=== PATIENT | female | born 1970 | race Caucasian/White ===

== ENCOUNTER 2017-04-06 23:58 | Observation (INO) | payer SELFPAY ==
--- NOTE | ~2017-04-06 | DS ---
Discharge Summary [id number] [place]. [address] NAME: NAGI SEPULVEDA : 72 STATUS : DIS Howard PAT#: [id number] AGE: 47 ADM/REG DATE : 04/07/17 MR#: [id number] REPORT SERV DATE: 04/10/17 DICTATED BY: LISSA TREJO DATE: 04/09/17 REPORT STATUS : Draft TRANSCRIBED BY: MODL DATE: 04/09/17 ADMISSION DATE: 04/07/2017 DISCHARGE DATE: 04/09/2017 DISCHARGE DIAGNOSES: 1. Urinary tract infection. 2. Hypertension. 3. Chronic pancreatitis. 4. Biliary dyskinesia. The patient was followed by Dr. Muir for outpatient cholecystectomy. 5. Fatty liver with elevated LFTs. CONSULTANTS: Dr. Muir. HISTORY OF PRESENT ILLNESS: This is a 47-year-old female patient, who came to the hospital with abdominal pain. Please see dictated H and P. HOSPITAL COURSE: She was admitted to the hospital. Evaluation with CT of the abdomen and pelvis revealed a markedly distended gallbladder with slight elevation of the LFTs. The patient does have history of alcoholism, but it is discontinued. She did have history of fatty liver disease. She had an evaluation with HIDA scan, which showed a dysfunctional gallbladder. So, the patient was referred to Dr. Muir and evaluated by him, and recommended outpatient evaluation and treatment. Meanwhile, she was put on proton pump inhibitor and Carafate, and her symptoms are slightly improved. Overall, had a stable hospitalization. She is ambulating and she could do the outpatient evaluation and therapy. The patient is tolerating diet. So, the patient will be discharged to home in stable condition with a very close followup with Dr. Muir. DISCHARGE MEDICATIONS: Prilosec 20 mg twice a day, Carafate 1 g four times a day, hydrocodone is given for intermittent pain relief, and Bactrim DS twice a day for one more day. EKL/MODL Lissa Trejo M.D. / [id number] CC: Lissa Trejo M.D.
--- NOTE | ~2017-04-06 | HP ---
History And Physical [address] [place]. [address] NAME: NAGI SEPULVEDA : 72 STATUS : ADM Howard PAT#: [id number] AGE: 47 ADM/REG DATE : 04/07/17 MR#: [id number] REPORT SERV DATE: 04/07/17 DICTATED BY: CONRADO BARCLAY DATE: 04/07/17 REPORT STATUS : Draft TRANSCRIBED BY: MODL DATE: 04/07/17 DATE OF ADMISSION: 04/07/2017 CHIEF COMPLAINT: A 47-year-old female with no primary care physician, presenting with abdominal pain and urinary symptoms. HISTORY OF PRESENT ILLNESS: The patient's history was obtained through an interview with the patient, coupled with review of [facility] medical records. For about two weeks, the patient has been having intermittent abdominal pain, but it has been constant and more severe over the last three days. She describes a mid abdominal pain in the epigastric region that radiates to the back wrapping around both sides. It has a sharp quality, 9/10 severity. She states that the pain reminds her of past exacerbations of pancreatitis. But she has also had increasing urinary frequency, urinary urgency, dysuria, and associated nausea and vomiting. She has suffered diaphoresis, but no overt fevers or chills. She has had lightheadedness. No shortness of breath. No cough. No chest pain. REVIEW OF SYSTEMS: Otherwise, a 14-point review of systems was obtained and was negative. PAST MEDICAL HISTORY: 1. Chronic pancreatitis. 2. Alcoholism with alcohol withdrawal seizures. 3. Obstructive sleep apnea, but intolerant of CPAP. 4. Peptic ulcer disease. 5. Depression and anxiety. 6. Urinary tract infections. 7. Hypertension. 8. Gastroesophageal reflux disorder. 9. Ovarian cyst. 10.Leukopenia and thrombocytopenia. 11.Fatty liver disease. PAST SURGICAL HISTORY: 1. Bladder surgery when the patient was 5 years old. 2. Tubal ligation. 3. Right thumb surgery. ALLERGIES: TO MORPHINE AND HEPARIN. SOCIAL HISTORY: No tobacco abuse. The patient states that she only drinks socially now, but History And Physical [address] [address] NAME: NAGI SEPULVEDA : 72 STATUS : ADM Howard PAT#: [id number] AGE: 47 ADM/REG DATE : 04/07/17 MR#: [id number] REPORT SERV DATE: 04/07/17 DICTATED BY: CONRADO BARCLAY DATE: 04/07/17 REPORT STATUS : Draft TRANSCRIBED BY: GABBY DATE: 04/07/17 has been a heavy vodka drinker. She occasionally smokes marijuana. She lives in [place], [place], with her boyfriend. She has three children, all in their 20s. MEDICATIONS: Include Norvasc 5 mg p.o. b.i.d. PHYSICAL EXAMINATION: VITAL SIGNS: Temperature 98.6, pulse 98, blood pressure 159/102, respiratory rate 16, and O2 saturation 98% on room air. GENERAL: A pleasant, cooperative female, in no significant distress. HEENT: Pupils equal, round, and reactive to light. No conjunctival pallor. No scleral icterus. Nares are patent. Oropharynx is clear of obstruction. Moist mucous membranes. NECK: Trachea midline. No thyromegaly. LYMPH: No cervical lymphadenopathy. No supraclavicular lymphadenopathy. RESPIRATORY: Clear to auscultation at bases. No wheezes, rales, or rhonchi. Normal respiratory effort. CARDIOVASCULAR: Regular rate and rhythm. No murmurs, rubs, or gallops. No extremity edema is appreciated. ABDOMEN: Significant epigastric pain, but no guarding, no rebound. No significant suprapubic abdominal pain. No flank pain. The patient has no hepatosplenomegaly by exam. DERMATOLOGIC: Warm and dry extremities. No pallor. No cyanosis. PSYCHIATRIC: Normal affect. Good mood. Alert and oriented x3. LABORATORY DATA: Urinalysis shows large leukocyte esterase, greater than 182 white blood cells, 87 red blood cells. White blood cell count 4.3, hemoglobin 14, hematocrit 42, platelets 144. Sodium 138, potassium 4.0, chloride 101, bicarb 32, BUN 5, creatinine 0.68, glucose 136, lipase 289. AST 130, ALT 118, alkaline phosphatase 149. STUDIES: CT scan of the abdomen shows changes, possible gallbladder disease. ASSESSMENT AND PLAN: 1. Urinary tract infection. Check urine culture. Place on IV antibiotics. 2. Abnormal CT scan of the gallbladder. Check a HIDA scan. 3. Chronic pancreatitis. 4. History of alcoholism. KPL/MODL Conrado Barclay M.D. / [id number] CC: Madina Mcfarland M.D.
[2017-04-06 19:54] LABS: BASOPHILS 0.2 %; BASOPHILS ABSOLUTE 0.01 10/3/uL (0.0-0.16); EOSINOPHILS 2.1 %; EOSINOPHILS ABSOLUTE 0.09 10/3/uL (0.0-0.53); ER CBC TAT 0 Hrs 09 Mins; HEMATOCRIT 41.6 % (36.0-48.0); HEMOGLOBIN 14.4 g/dL (12.0-16.0); IMMATURE GRANULOCYTES 0.2 %; IMMATURE GRANULOCYTES ABSOLUTE 0.01 10/3/uL (0.0-0.11); LYMPHOCYTES 28.3 %; LYMPHOCYTES ABSOLUTE 1.21 10/3/uL (0.67-4.30); MEAN CORPUS HGB CONC 34.6 g/dL (32.0-36.0); MEAN CORPUSCULAR HEMOGLOB 33.3 pg (26.0-34.0); MEAN CORPUSCULAR VOLUME 96.3 fL (80-100); MEAN PLATELET VOLUME 10.4 fL (9.2-13.0); MONOCYTES 5.8 %; MONOCYTES ABSOLUTE 0.25 10/3/uL (0.21-1.20); NEUTROPHILS 63.4 %; NEUTROPHILS ABSOLUTE 2.71 10/3/uL (2.02-8.40); PLATELET COUNT 144 10/3/uL (150-400); RBC DISTRIBUTION WIDTH 14.7 % (12.0-16.0); RED CELL COUNT 4.32 10/6/uL (4.0-5.6); WHITE BLOOD CELLS 4.3 10/3/uL (4.5-10.5)
[2017-04-06 19:56] LABS: MANUAL DIFF NO %
[2017-04-06 20:14] LABS: A/G RATIO 1.1 (0.7-1.9); ALBUMIN 3.6 G/DL (3.5-5.0); CALCIUM, SERUM 8.5 MG/DL (8.5-10.4); CHLORIDE, SERUM 101 MMOL/L (96-112); CREATININE 0.68 MG/DL (0.55-1.02); GFR AFRICAN AMERICAN 122 ML/MIN (>=60); GFR NON AFRICAN AMERICAN 105 ML/MIN (>=60); GLOBULIN 3.3 G/DL (2.5-4.1); GLUCOSE, SERUM 136 MG/DL (60-99); SGOT(AST) 130 U/L (5-40); SGPT(ALT) 158 U/L (5-65); SODIUM, SERUM 138 MMOL/L (135-148); TOTAL BILIRUBIN 0.9 MG/DL (0-1.2); TOTAL PROTEIN 6.9 G/DL (6.0-8.5)
[2017-04-06 20:17] LABS: ALKALINE PHOSPHATASE 149 U/L (45-117); BUN (BLOOD UREA NITROGEN) 5 MG/DL (6-23); CO2 (CARBON DIOXIDE) 32 MMOL/L (24-34)
[2017-04-06 20:32] LABS: ASCORBIC ACID (UR NOT ORDER) 40 (NEG); BILIRUBIN, URINE NEGATIVE (NEG); ER URINALYSIS TAT 0 Hrs 15 Mins; KETONE, URINE 20 MG/DL (NEG); LEUKOCYTE ESTERASE(NOT OR LARGE (NEG); NITRITE (URINE) NEG (NEG)
[2017-04-06 20:47] LABS: WBC (NOT ORDERED) (RFLEX) > 182 (0-5)
[~2017-04-06 23:58] MED LIST: CATPATCH1 TOP; CYMBALTA60 PO; FOLIC PO; GOODY'S HEADAC1 EACH PO; L10 PO; LOP50 PO; LORTAB 5 PO; NORV5 PO; PAXIL40 MG PO; PROTONIX PO; SYN.025B PO; TRAZ100 PO; TRAZODONE; VICODINTAB PO; VIT B-SIX 50 MG50 MG PO
[2017-04-07] MEDS ORDERED: NORV5 PO (01:53)
[2017-04-07] MEDS ORDERED: [UNRECOGNIZED DRUG - OTHER] PO (01:55)
[2017-04-07 12:49] LABS: BASOPHILS 0.2 %; BASOPHILS ABSOLUTE 0.01 10/3/uL (0.0-0.16); EOSINOPHILS 2.7 %; EOSINOPHILS ABSOLUTE 0.12 10/3/uL (0.0-0.53); HEMATOCRIT 37.5 % (36.0-48.0); HEMOGLOBIN 12.8 g/dL (12.0-16.0); IMMATURE GRANULOCYTES 0.2 %; IMMATURE GRANULOCYTES ABSOLUTE 0.01 10/3/uL (0.0-0.11); LYMPHOCYTES 25.3 %; LYMPHOCYTES ABSOLUTE 1.13 10/3/uL (0.67-4.30); MEAN CORPUS HGB CONC 34.1 g/dL (32.0-36.0); MEAN CORPUSCULAR HEMOGLOB 32.8 pg (26.0-34.0); MEAN CORPUSCULAR VOLUME 96.2 fL (80-100); MEAN PLATELET VOLUME 10.6 fL (9.2-13.0); MONOCYTES 7.4 %; MONOCYTES ABSOLUTE 0.33 10/3/uL (0.21-1.20); NEUTROPHILS 64.2 %; NEUTROPHILS ABSOLUTE 2.86 10/3/uL (2.02-8.40); PLATELET COUNT 124 10/3/uL (150-400); RBC DISTRIBUTION WIDTH 14.8 % (12.0-16.0); WHITE BLOOD CELLS 4.5 10/3/uL (4.5-10.5)
[2017-04-07 12:53] LABS: MANUAL DIFF NO %
[2017-04-07 12:57] LABS: INTERNATIONAL NORMAL RATI 1.4 UNITS (-); PARTIAL THROMBO TIME 37.2 SEC (22.5-37.2); PROTIME (NOT ORD) 17.4 SEC (12.0-14.5)
[2017-04-07 13:12] LABS: ALBUMIN 3.1 G/DL (3.5-5.0); BUN (BLOOD UREA NITROGEN) 4 MG/DL (6-23); CALCIUM, SERUM 8.1 MG/DL (8.5-10.4); CHLORIDE, SERUM 104 MMOL/L (96-112); CREATININE 0.53 MG/DL (0.55-1.02); GFR AFRICAN AMERICAN 132 ML/MIN (>=60); GFR NON AFRICAN AMERICAN 114 ML/MIN (>=60); GLOBULIN 3.1 G/DL (2.5-4.1); POTASSIUM, SERUM 3.5 MMOL/L (3.5-5.3); SGOT(AST) 87 U/L (5-40); SGPT(ALT) 115 U/L (5-65); SODIUM, SERUM 139 MMOL/L (135-148); TOTAL BILIRUBIN 0.6 MG/DL (0-1.2); TOTAL PROTEIN 6.2 G/DL (6.0-8.5); TROPONIN I <0.02 NG/ML (<0.05)
[2017-04-07 13:13] LABS: ALKALINE PHOSPHATASE 127 U/L (45-117); CO2 (CARBON DIOXIDE) 26 MMOL/L (24-34); GLUCOSE, SERUM 175 MG/DL (60-99)
[2017-04-07 13:47] LABS: HEPATITIS B SURFACE ANTIGEN NON-REACTIVE (NON-REACT)
[2017-04-07 14:00] LABS: HEPATITIS C ANTIBODY NON-REACTIVE (NON-REACT)
[2017-04-07 14:15] LABS: HEPATITIS B CORE AB IGM NON-REACTIVE (NON-REAC)
[2017-04-07 14:16] LABS: HEP A ANTIBODY IGM NON-REACTIVE (NON-REACT)
[2017-04-08 04:37] LABS: A/G RATIO 0.9 (0.7-1.9); ALBUMIN 3.2 G/DL (3.5-5.0); BUN (BLOOD UREA NITROGEN) 3 MG/DL (6-23); CALCIUM, SERUM 8.7 MG/DL (8.5-10.4); CHLORIDE, SERUM 104 MMOL/L (96-112); CO2 (CARBON DIOXIDE) 28 MMOL/L (24-34); CREATININE 0.53 MG/DL (0.55-1.02); GFR AFRICAN AMERICAN 132 ML/MIN (>=60); GFR NON AFRICAN AMERICAN 114 ML/MIN (>=60); GLOBULIN 3.4 G/DL (2.5-4.1); POTASSIUM, SERUM 3.7 MMOL/L (3.5-5.3); SGOT(AST) 133 U/L (5-40); SGPT(ALT) 143 U/L (5-65); SODIUM, SERUM 139 MMOL/L (135-148); TOTAL BILIRUBIN 0.6 MG/DL (0-1.2); TOTAL PROTEIN 6.6 G/DL (6.0-8.5)
[2017-04-08 04:38] LABS: ALKALINE PHOSPHATASE 145 U/L (45-117); GLUCOSE, SERUM 126 MG/DL (60-99)
[2017-04-09 05:08] LABS: BUN (BLOOD UREA NITROGEN) 3 MG/DL (6-23); CALCIUM, SERUM 8.4 MG/DL (8.5-10.4); CHLORIDE, SERUM 106 MMOL/L (96-112); CO2 (CARBON DIOXIDE) 26 MMOL/L (24-34); CREATININE 0.55 MG/DL (0.55-1.02); GFR AFRICAN AMERICAN 130 ML/MIN (>=60); GFR NON AFRICAN AMERICAN 112 ML/MIN (>=60); GLUCOSE, SERUM 110 MG/DL (60-99); POTASSIUM, SERUM 3.8 MMOL/L (3.5-5.3); SODIUM, SERUM 139 MMOL/L (135-148)
[2017-04-09] MEDS ORDERED: PRILO PO (11:53)
[2017-04-09] MEDS ORDERED: SUCR PO (11:54)
[2017-04-09] MEDS ORDERED: BACDS PO (11:55)
[2017-04-09] MEDS ORDERED: NORCO1 TA1 PO (11:56)
== END 2017-04-09 12:27 | disposition home or self-care (01) ==
LOC: ER 23:58 → 5NO 04-07 03:02
PROVIDERS: Hospitalist; Internal Medicine
DX: N39.0 Urinary tract infection, site not specified (principal); I10 Essential (primary) hypertension; K86.1 Other chronic pancreatitis; K82.8 Other specified diseases of gallbladder; K76.0 Fatty (change of) liver, not elsewhere classified; G47.33 Obstructive sleep apnea (adult) (pediatric); R56.9 Unspecified convulsions; F41.9 Anxiety disorder, unspecified; E78.00 Pure hypercholesterolemia, unspecified; F32.9 Major depressive disorder, single episode, unspecified; K21.9 Gastro-esophageal reflux disease without esophagitis; Z98.51 Tubal ligation status; Z98.890 Other specified postprocedural states; Z99.89 Dependence on other enabling machines and devices; Z88.5 Allergy status to narcotic agent; Z88.8 Allergy status to other drugs, medicaments and biological substances; Z79.899 Other long term (current) drug therapy
CPT/HCPCS: 74176; 78227; 80048; 80053; 80074; 81001; 82150; 83690; 84443; 84484; 84703; 85025; 85610; 85730; 87086; 96372; 96374; 96375; 96376; 99285; A9270-GY; A9537; G0378; J1170; J2405; J2805

== ENCOUNTER 2017-04-15 12:13 | Day surgery (SDC) | payer SELFPAY ==
[2017-04-14 08:19] LABS: BASOPHILS 0.4 %; BASOPHILS ABSOLUTE 0.02 10/3/uL (0.0-0.16); EOSINOPHILS 1.3 %; EOSINOPHILS ABSOLUTE 0.07 10/3/uL (0.0-0.53); HEMATOCRIT 39.8 % (36.0-48.0); HEMOGLOBIN 13.6 g/dL (12.0-16.0); LYMPHOCYTES 22.6 %; LYMPHOCYTES ABSOLUTE 1.26 10/3/uL (0.67-4.30); MEAN CORPUS HGB CONC 34.2 g/dL (32.0-36.0); MEAN CORPUSCULAR HEMOGLOB 33.2 pg (26.0-34.0); MEAN CORPUSCULAR VOLUME 97.1 fL (80-100); MEAN PLATELET VOLUME 10.6 fL (9.2-13.0); MONOCYTES 8.1 %; MONOCYTES ABSOLUTE 0.45 10/3/uL (0.21-1.20); NEUTROPHILS 67.6 %; NEUTROPHILS ABSOLUTE 3.78 10/3/uL (2.02-8.40); WHITE BLOOD CELLS 5.6 10/3/uL (4.5-10.5)
[2017-04-14 08:21] LABS: MANUAL DIFF NO %; PLATELET COUNT 179 10/3/uL (150-400)
[2017-04-14 08:34] LABS: A/G RATIO 1.2 (0.7-1.9); ALBUMIN 3.3 G/DL (3.5-5.0); ALKALINE PHOSPHATASE 137 U/L (45-117); BUN (BLOOD UREA NITROGEN) 6 MG/DL (6-23); CALCIUM, SERUM 8.7 MG/DL (8.5-10.4); CHLORIDE, SERUM 104 MMOL/L (96-112); CREATININE 0.67 MG/DL (0.55-1.02); GFR AFRICAN AMERICAN 122 ML/MIN (>=60); GFR NON AFRICAN AMERICAN 105 ML/MIN (>=60); GLOBULIN 2.8 G/DL (2.5-4.1); POTASSIUM, SERUM 4.2 MMOL/L (3.5-5.3); SGOT(AST) 128 U/L (5-40); SGPT(ALT) 117 U/L (5-65); SODIUM, SERUM 142 MMOL/L (135-148); TOTAL BILIRUBIN 0.6 MG/DL (0-1.2); TOTAL PROTEIN 6.1 G/DL (6.0-8.5)
[2017-04-14 08:35] LABS: CO2 (CARBON DIOXIDE) 32 MMOL/L (24-34); GLUCOSE, SERUM 237 MG/DL (60-99)
--- NOTE | ~2017-04-15 | OP ---
Record Of Operation [facility] [address] [place]. [address] NAME: NAGI SEPULVEDA : 72 STATUS : [facility]#: [id number] AGE: 47 ADM/REG DATE : 04/15/17 MR#: [id number] REPORT SERV DATE: 04/16/17 DICTATED BY: UBALDO BLEDSOE JR. DATE: 04/15/17 REPORT STATUS : Draft TRANSCRIBED BY: MODSamuel DATE: 04/15/17 DATE OF PROCEDURE: 04/15/2017 SURGEON: Ubaldo Bledsoe M.D. CORPORATE RECYCLING MANAGER: Allegra Campuzano. PROCEDURE: Laparoscopic cholecystectomy. PREOPERATIVE DIAGNOSIS: Biliary dyskinesia. POSTOPERATIVE DIAGNOSIS: Biliary dyskinesia. ANESTHESIA: General. INDICATIONS: This patient has developed upper abdominal right upper quadrant pain. She has been found to have a reduced gallbladder ejection fraction on HIDA scan, and cholecystectomy is indicated for diagnosis of biliary dyskinesia. FINDINGS: On laparoscopic exam of her abdomen, there is evidence of distention of the gallbladder with some inflammatory change. The liver does have a congested appearance consistent with her known alcoholic liver disease. No other significant findings were encountered. DESCRIPTION OF PROCEDURE: With adequate general anesthesia, the patient was placed in the supine position. The abdomen was prepped and draped sterilely. 0.5% Marcaine was used for local infiltration of all trocar sites. An infraumbilical incision was made. The dissection was carried down sharply through the subcutaneous tissues. The fascia and peritoneum were opened. The peritoneal cavity was entered and a balloon-tipped trocar was introduced. The abdomen was then insufflated with CO2. The laparoscope was introduced with the above-noted findings. Under direct vision, a 10-11 trocar was placed in the epigastric region and two 5s in the subcostal. The gallbladder was identified, grasped, and retracted in a cephalad manner. The cystic duct was identified as was the artery. These were doubly clipped and divided. The gallbladder was then removed from its bed with electrocautery. It was extracted through the epigastric site and submitted to Pathology. The area was irrigated with saline. Hemostasis was assured with electrocautery. Then, the epigastric and umbilical incisions were closed with [id number] 0 PDS for the fascial layer. All wounds were then closed with dermal Monocryl. Sterile dressings were applied. The patient left the operating room in satisfactory condition. The estimated blood loss was 10 mL. MICH/GABBY Ubaldo Bledsoe Jr., M.D. Record Of Operation [address] [address] NAME: NAGI SEPULVEDA : 72 STATUS : [facility] PAT#: [id number] AGE: 47 ADM/REG DATE : 04/15/17 MR#: [id number] REPORT SERV DATE: 04/16/17 DICTATED BY: UBALDO BLEDSOE JR. DATE: 04/15/17 REPORT STATUS : Draft TRANSCRIBED BY: GABBY DATE: 04/15/17 / [id number] CC: Ubaldo Bledsoe Jr., M.D.
[~2017-04-15 12:13] MED LIST changes: +BACDS PO; +NORCO1 TA1 PO; +PRILO PO; +SUCR PO; +[UNRECOGNIZED DRUG - OTHER] PO
== END 2017-04-15 20:33 | disposition home or self-care (01) ==
LOC: SDC 12:13
PROVIDERS: Specialist
PROC: 0FT44ZZ Resection of Gallbladder, Percutaneous Endoscopic Approach (ICD-10-PCS; principal; 2017-04-15 14:00)
DX: K81.1 Chronic cholecystitis (principal); I10 Essential (primary) hypertension; K21.9 Gastro-esophageal reflux disease without esophagitis; G47.33 Obstructive sleep apnea (adult) (pediatric); R56.9 Unspecified convulsions; F41.9 Anxiety disorder, unspecified; D64.9 Anemia, unspecified; F32.9 Major depressive disorder, single episode, unspecified; Z88.5 Allergy status to narcotic agent; Z79.899 Other long term (current) drug therapy; Z98.51 Tubal ligation status; Z98.890 Other specified postprocedural states
CPT/HCPCS: 71020; 80053; 82150; 82962; 83690; 85025; 88304; 93005; A9270-GY; J0690; J1170; J1885; J2250; J2405; J2710; J3010; Q9967

== ENCOUNTER 2017-05-03 23:00 | Observation (INO) | payer SELFPAY ==
--- NOTE | ~2017-05-03 | HP ---
History And Physical [address] [address] NAME: NAGI SEPULVEDA : 72 STATUS : ADM Howard PAT#: [id number] AGE: 47 ADM/REG DATE : 05/03/17 MR#: [id number] REPORT SERV DATE: 05/04/17 DICTATED BY: UBALDO MUIR JR. DATE: 05/04/17 REPORT STATUS : Draft TRANSCRIBED BY: GABBY DATE: 05/04/17 DATE OF ADMISSION: 05/03/2017 CHIEF COMPLAINT: Abdominal pain. HISTORY OF PRESENT ILLNESS: This is a 47-year-old female, who had undergone laparoscopic cholecystectomy, approximately two weeks ago for preoperative diagnosis of biliary dyskinesia. She had focal mild chronic cholecystitis. She had history of pancreatitis, thought secondary to alcohol disease. She was discharged, initially did well, but presented to the ER with three days of epigastric pain with nausea, evaluation showed some tenderness. Laboratory studies showed mild alteration in liver function tests with slight elevation of bilirubin and transaminases. She was held for observation for additional evaluation and management. She continues to have intermittent pain, which she describes as cramping in nature. It is somewhat reminiscent of her pancreatitis pain. She states she has had normal bowel movements. She has not vomited. She does not exhibit definite fever. PAST MEDICAL HISTORY: Remarkable for history of hypertension, history of alcoholism, history of obstructive sleep apnea, history of peptic ulcer disease, depression, anxiety, GE reflux, ovarian cysts, and fatty liver disease. SURGERIES: Remarkable for bladder surgery, tubal ligation, thumb surgery, and also the cholecystectomy. ALLERGIES: MORPHINE AND HEPARIN. MEDICATIONS: Listed and reviewed. SOCIAL HISTORY: Tobacco, none; alcohol, none since surgery. FAMILY HISTORY: Noncontributory. REVIEW OF SYSTEMS: GENERAL: Fevers, subjective, no jaundice. HEENT: Negative. PULMONARY: No acute symptoms. CARDIAC: Negative. GI: As above. : Negative. MUSCULOSKELETAL: Negative. IMMUNOLOGIC: Negative. PSYCHIATRIC: Negative PHYSICAL EXAMINATION: GENERAL: Shows a healthy-appearing female, who is in no acute distress. She is not jaundiced. HEAD AND NECK: Shows no icteric sclerae. Mucous membranes are moist. History And Physical [address] [address] NAME: NAGI SEPULVEDA : 72 STATUS : ADM Howard PAT#: [id number] AGE: 47 ADM/REG DATE : 05/03/17 MR#: [id number] REPORT SERV DATE: 05/04/17 DICTATED BY: UBALDO MUIR JR. DATE: 05/04/17 REPORT STATUS : Draft TRANSCRIBED BY: GABBY DATE: 05/04/17 NECK: Supple. There is no mass or thyromegaly. LUNGS: Clear bilaterally. CARDIOVASCULAR: Normal S1, S2 without murmur. ABDOMEN: There is tenderness in the epigastrium. There is no mass, no hepatomegaly. The incisions are healing well. EXTREMITIES: Show no clubbing, cyanosis, or edema. NEUROLOGIC: She is alert and oriented. No focal findings. Appropriate affect. IMPRESSION: 1. Abdominal pain, post cholecystectomy. 2. History of pancreatitis, alcohol use. PLAN: We will hydrate with IV fluids. We will check HIDA scan to rule out leak. Consider CT as otherwise unrevealing. MICH/GABBY Ubaldo Muir Jr., M.D. / [id number] CC: Ubaldo Muir Jr., M.D.
[2017-05-03 23:07] LABS: BASOPHILS 0.3 %; BASOPHILS ABSOLUTE 0.01 10/3/uL (0.0-0.16); EOSINOPHILS 0.9 %; EOSINOPHILS ABSOLUTE 0.03 10/3/uL (0.0-0.53); ER CBC TAT 0 Hrs 08 Mins; HEMATOCRIT 38.7 % (36.0-48.0); HEMOGLOBIN 13.3 g/dL (12.0-16.0); LYMPHOCYTES 26.5 %; MEAN CORPUS HGB CONC 34.4 g/dL (32.0-36.0); MEAN CORPUSCULAR HEMOGLOB 33.2 pg (26.0-34.0); MEAN CORPUSCULAR VOLUME 96.5 fL (80-100); MEAN PLATELET VOLUME 10.7 fL (9.2-13.0); MONOCYTES 6.2 %; MONOCYTES ABSOLUTE 0.21 10/3/uL (0.21-1.20); NEUTROPHILS 66.1 %; NEUTROPHILS ABSOLUTE 2.24 10/3/uL (2.02-8.40); PLATELET COUNT 172 10/3/uL (150-400); RBC DISTRIBUTION WIDTH 14.2 % (12.0-16.0); RED CELL COUNT 4.01 10/6/uL (4.0-5.6); WHITE BLOOD CELLS 3.4 10/3/uL (4.5-10.5)
[2017-05-03 23:09] LABS: MANUAL DIFF NO %
[2017-05-03 23:21] LABS: A/G RATIO 0.9 (0.7-1.9); ALBUMIN 3.3 G/DL (3.5-5.0); ALKALINE PHOSPHATASE 226 U/L (45-117); BUN (BLOOD UREA NITROGEN) 4 MG/DL (6-23); CALCIUM, SERUM 8.4 MG/DL (8.5-10.4); CHLORIDE, SERUM 101 MMOL/L (96-112); CO2 (CARBON DIOXIDE) 27 MMOL/L (24-34); CREATININE 0.68 MG/DL (0.55-1.02); GFR AFRICAN AMERICAN 122 ML/MIN (>=60); GFR NON AFRICAN AMERICAN 105 ML/MIN (>=60); GLOBULIN 3.5 G/DL (2.5-4.1); GLUCOSE, SERUM 151 MG/DL (60-99); POTASSIUM, SERUM 3.4 MMOL/L (3.5-5.3); SGOT(AST) 338 U/L (5-40); SGPT(ALT) 172 U/L (5-65); SODIUM, SERUM 137 MMOL/L (135-148); TOTAL BILIRUBIN 1.4 MG/DL (0-1.2); TOTAL PROTEIN 6.8 G/DL (6.0-8.5)
[2017-05-04 00:18] LABS: ASCORBIC ACID (UR NOT ORDER) NEG (NEG); BILIRUBIN, URINE NEGATIVE (NEG); ER URINALYSIS TAT 0 Hrs 00 Mins; KETONE, URINE NEGATIVE (NEG); LEUKOCYTE ESTERASE(NOT OR NEG (NEG); NITRITE (URINE) NEG (NEG); WBC (NOT ORDERED) (RFLEX) 2 (0-5)
[2017-05-04] MEDS ORDERED: NORV5 PO (02:00)
[2017-05-04] MEDS ORDERED: ZOFRAN4 PO (17:12)
[2017-05-04] MEDS ORDERED: NORCO1 TA1 PO (17:14)
== END 2017-05-04 17:50 | disposition home or self-care (01) ==
LOC: ER 23:00 → 5SO 23:59
PROVIDERS: Emergency Medicine
DX: R10.9 Unspecified abdominal pain (principal); I10 Essential (primary) hypertension; G47.33 Obstructive sleep apnea (adult) (pediatric); F32.9 Major depressive disorder, single episode, unspecified; F41.9 Anxiety disorder, unspecified; K21.9 Gastro-esophageal reflux disease without esophagitis; K76.0 Fatty (change of) liver, not elsewhere classified; Z98.51 Tubal ligation status; Z90.49 Acquired absence of other specified parts of digestive tract; Z98.890 Other specified postprocedural states; Z88.5 Allergy status to narcotic agent; Z88.8 Allergy status to other drugs, medicaments and biological substances; Z79.899 Other long term (current) drug therapy
CPT/HCPCS: 78226; 80053; 81001; 83690; 85025; 96372; 96375; 96376; 99285; A9270-GY; A9537; C9113; G0378; J0360; J1170; J2405